=== PATIENT | male | born 1995 | race Caucasian/White ===

== ENCOUNTER 2018-01-09 10:33 | Emergency (ER) | payer SELFPAY ==
[~2018-01-09] VITALS: Ht 175.3 cm; Wt 86.0 kg
[2018-01-09 10:45] VITALS: BP 142/98
[2018-01-09] MEDS ORDERED: IBUPROFEN 600MG TABLET PO ONE (11:30)
[2018-01-09] MEDS ORDERED: TETANUS, DIPHTHERIA, PERTUSSIS VAC/PF 0.5ML (>7YR OLD) IM ONE (11:30)
== END 2018-01-09 13:25 | disposition home or self-care (01) ==
LOC: ER 12:56
DX: S61.331A Puncture wound without foreign body of left index finger with damage to nail, initial encounter (principal); R03.0 Elevated blood-pressure reading, without diagnosis of hypertension; W29.4XXA Contact with nail gun, initial encounter; Y93.H3 Activity, building and construction; Y92.89 Other specified places as the place of occurrence of the external cause
CPT/HCPCS: 90471; 90715; 99283